=== PATIENT | female | born 1975 | race Caucasian/White ===

== ENCOUNTER 2021-07-06 10:20 | Emergency (ER) | payer OTHER ==
[~2021-07-06] VITALS: Ht 177.8 cm; Wt 97.5 kg
--- NOTE | ~2021-07-06 | EMS ---
[facility] [address] [place] [address] EMS Patient Care Report Name: YOBANI PRIEST Room #: DEP AIRAM Phan#: [id number] Admission: 07/06/21 Attend Phys: Discharge: 07/06/21 Date of : 79 Report #: [id number] THIS REPORT FOR: //name// Report Transmitted: 07/11/2021 10:18 EMS Care Summary [place], [place]/[facility] Incident [id number] @ 07/06/2021 09:45 Incident Location [address] [place] [address] Patient YOBANI AMANDA Female, 45 Years 1975 Patient Address [address] [place] [address] Patient History Alcohol Abuse, Chief Complaint Alcohol use Disposition Transported No Lights/[place] Dis[place] Reason Sick Person Transported To [facility] Narrative M42 arrived on scene to find the patient lying on her right lateral side in her bed. Patient's boyfriend had called and said the patient had been getting more and more confused over the last couple of days and he believed she had several small seizures. Patient denied any seizures but said she had a history of them. Patient said she had been drinking vodka over the last few days and throughout the night last night. Patient was moved to the cot and secured with seatbelts. En route to the hospital no changes in the patient condition occurred. M42 arrived on scene of the hospital and patient care was transferred to the . [facility] [address] [place] [address] EMS Patient Care Report Name: YOBANI PRIEST Room #: DEP AIRAM Phan#: [id number] Admission: 07/06/21 Attend Phys: Discharge: 07/06/21 Date of : 79 Report #: [id number] Initial Vitals @10:10P: 108,BP: 62/20,SpO2: 90, @10:04P: 111,R: 16,BP: 158/111,Pain: 0/10,GCS: 15,SpO2: 97,Revised Trauma: 12, @10:14P: 78,R: 16,BP: 148/82,Pain: 0/10,GCS: 14,Glucose: 72,SpO2: 97,Revised Trauma: 12, Assessments @09:53MENTAL:Person Oriented,Confused,Place Oriented,Event Oriented,SKIN:No Abnormalities,HEENT:Head/Face: No Abnormalities,Eyes: No Abnormalities,Neck/Airway: No Abnormalities,LUNG SOUNDS:General: No Abnormalities,Left Upper: No Abnormalities,Right Upper: No Abnormalities,Left Lower: No Abnormalities,Right Lower: No Abnormalities,ABDOMEN:General: No Abnormalities,Left Upper: No Abnormalities,Right Upper: No Abnormalities,Left Lower: No Abnormalities,Right Lower: No Abnormalities,PELVIS//GI:No Abnormalities,EXTREMITIES:Left Arm: No Abnormalities,Right Arm: No Abnormalities,Left Leg: No Abnormalities,Right Leg: No Abnormalities,PULSE:NEURO:No Abnormalities,@10:05MENTAL:Confused,Event Oriented,Person Oriented,Place Oriented,SKIN:No Abnormalities,HEENT:Head/Face: No Abnormalities,Eyes: No Abnormalities,Neck/Airway: No Abnormalities,LUNG SOUNDS:General: No Abnormalities,Left Upper: No Abnormalities,Right Upper: No Abnormalities,Left Lower: No Abnormalities,Right Lower: No Abnormalities,ABDOMEN:General: No Abnormalities,Left Upper: No Abnormalities,Right Upper: No Abnormalities,Left Lower: No Abnormalities,Right Lower: No Abnormalities,PELVIS//GI:No Abnormalities,EXTREMITIES:Left Arm: No Abnormalities,Right Arm: No Abnormalities,Left Leg: No Abnormalities,Right Leg: No Abnormalities,PULSE:NEURO:No Abnormalities, Impression Alcohol use Procedures @09:53 ALS Assessment Response: UnchangedSucceeded Timeline 09:42,Call Received 09:42,Dispatch Notified 09:45,Dispatched 09:46,En Route 09:52,On Scene 09:53,At Patient 09:53,ALS Assessment,Response: UnchangedSucceeded, 10:04,BP: 158/111 M,PULSE: 111,RR: 16 R,SPO2: 97 Ox,ETCO2: ,BG: ,PAIN: 0,GCS: 15, 10:10,BP: 62/20 M,PULSE: 108,RR: R,SPO2: 90 Ox,ETCO2: ,BG: ,PAIN: ,GCS: , [facility] [address] [place] [address] EMS Patient Care Report Name: CEMYOBANI Room #: DEP AIRAM Phan#: [id number] Admission: 07/06/21 Attend Phys: Discharge: 07/06/21 Date of : 79 Report #: [id number] 10:10,Depart Scene 10:14,BP: 148/82 M,PULSE: 78,RR: 16 R,SPO2: 97 Ox,ETCO2: ,B,PAIN: 0,GCS: 14, 10:17,At Destination 10:33,Call Closed Disclaimer v1.1 Copyright 2020 [employer] This EMS Care Summary contains data elements from the applicable legal record (which may be displayed differently). It is designed to provide pertinent information for the following purposes: continuity of care, clinical quality, and state data reporting. The complete legal record is available to ED staff and administrators of the receiving hospital in [employer]'s Patient Tracker. All data is provided "as is."
[~2021-07-06 10:20] MED LIST: COMPAZINE10 MG PO; K-DUR 20 MEQ T20 MEQ PO; NOHOMEMEDICATIONS; VICOPROFEN 2001 EACH PO; XANAX 1 MG TABLE1 MG PO
[2021-07-06] MEDS ORDERED: PRINIVIL40 MG PO (10:50)
[2021-07-06] MEDS ORDERED: GABAPENTIN800 M1 PO (10:51)
[2021-07-06] MEDS ORDERED: CLONIDINE HCL0.1 MG PO (10:51)
[2021-07-06] MEDS ORDERED: PRILOSEC OTC20 MG PO (10:53)
[2021-07-06] MEDS ORDERED: RAYOS5 MG PO (10:53)
[2021-07-06] MEDS ORDERED: MELOXICAM7.5 MG PO (10:53)
[2021-07-06] MEDS ORDERED: TIZANIDINE HCL4 M1 PO (10:54)
[2021-07-06] MEDS ORDERED: HYDROXYZINE HCL25 M2 PO (10:54)
[2021-07-06] MEDS ORDERED: PLAQUENIL200 MG PO (10:55)
[2021-07-06] MEDS ORDERED: FLEXERIL PO (10:55)
[2021-07-06] MEDS ORDERED: IMURAN 50MG TAB50 M1 PO (10:56)
[2021-07-06] MEDS ORDERED: GUMMI BEAR MUL1 EAC1 PO (10:59)
[2021-07-06] MEDS ORDERED: MELATONIN3 M1 PO (10:59)
[2021-07-06] MEDS ORDERED: CALCIUM500 MG PO (11:00)
[2021-07-06 11:36] LABS: ABSOLUTE NEUTROPHILS 11.7 thou/uL (1.4-8.2); BASOPHILS 0.7 % (0.0-2.0); EOSINOPHILS 0.1 % (0.0-3.0); HEMATOCRIT 42.6 % (37.0-47.0); HEMOGLOBIN 13.9 gm/dL (12.0-15.0); LYMPHOCYTES 8.2 % (24.0-44.0); MCH 31.3 pg (26.0-34.0); MCHC 32.6 g/dL (28.0-37.0); MONOCYTES 4.1 % (1.0-8.0); PLATELET COUNT 400 thou/uL (150-400); POLYS 86.9 % (36.0-66.0); RBC 4.44 mil/uL (4.20-5.00); RDW 14.3 % (10.5-14.5); WBC 13.5 thou/uL (4.0-11.0)
[2021-07-06] MEDS ORDERED: XANAX 1 MG TABLE1 MG PO (11:40)
[2021-07-06] MEDS ORDERED: ONDANSETRON HCL4 M2 PO (11:40)
[2021-07-06 11:46] LABS: CALCIUM 8.8 mg/dL (8.5-10.1); CREATININE 1.4 mg/dL (0.6-1.0)
[2021-07-06 11:47] LABS: AMP/METHAMP Negative (Negative); BARBITURATES Negative (Negative); BENZODIAZEPINES Negative (Negative); COCAINE Negative (Negative); METHADONE Negative (Negative); OPIATES Negative (Negative); PCP Negative (Negative)
[2021-07-06 11:47] LABS: POTASSIUM 5.8 mmol/L (3.5-5.1)
[2021-07-06 13:17] LABS: POTASSIUM 4.8 mmol/L (3.5-5.1)
[2021-07-06 13:44] VITALS: BP 137/91
== END 2021-07-06 13:44 | disposition home or self-care (01) ==
LOC: ER 10:20
PROVIDERS: Emergency Medicine
DX: F10.10 Alcohol abuse, uncomplicated (principal); Y90.9 Presence of alcohol in blood, level not specified; E87.6 Hypokalemia; M06.9 Rheumatoid arthritis, unspecified; I10 Essential (primary) hypertension; F41.9 Anxiety disorder, unspecified; F32.9 Major depressive disorder, single episode, unspecified; Z79.899 Other long term (current) drug therapy; Z88.1 Allergy status to other antibiotic agents